=== PATIENT | female | born 1975 | race Caucasian/White ===

== ENCOUNTER → 2016-11-28 | Outpatient (CLI) | payer OTHER ==
--- NOTE | 2016-11-28 09:05 | US ---
EXAMINATION TYPE: US thyroid st tissue head/neck DATE OF EXAM: 11/28/2016 COMPARISON: NONE CLINICAL HISTORY: E01.1 THYROMEGALY. no abn labs, but enlarged thyroid gland on dr's exam GLAND SIZE: Right Lobe: 5.4 x 1.5 x 2.4 cm Left Lobe: 5.4 x 3.0 x 2.8 cm Isthmus Thickness: 0.4 cm NODULES RIGHT: # of nodules measured on right: 3 1. 1.9 X 1.2 x 1.2 cm complex cystic nodule at the posterior pole with well-defined margins. This nodule is wider than tall and shows no intranodular vascularity. Prior size: no previous 2. 0.7 X 0.5 x 0.6 cm hypoechoic solid nodule at the upper pole with well-defined margins. This nod ule is wider than tall and shows no intranodular vascularity. Prior size: no previous 3. 0.6 X 0.5 x 0.4 cm hypoechoic solid nodule at the anterior upper pole with well-defined margins. This nodule is wider than tall and shows peripheral vascularity. Prior size: no previous LEFT: # of nodules measured on left: 1 1. 3.9 X 2.5 x 2.6 cm hypoechoic heterogeneous solid nodule at the lower pole with well-defined mar gins. This nodule is wider than tall and shows intranodular vascularity. Prior size: no previous ISTHMUS: # of nodules measured in the isthmus: 0 Bilateral neck scanned, no evidence of lymphadenopathy. Thyroid gland is heterogeneous in appearance and enlarged in size, there is a dominant heterogeneous hypoechoic well-defined 3.9 cm solid nodule lower pole level left thyroid. There are scattered smalle r nodules in right thyroid lobe including a dominant 1.9 cm well-defined cystic nodule with colloid. IMPRESSION: Heterogeneous enlarged thyroid gland with dominant 3.9 cm solid left thyroid nodule, ultrasound guide d fine-needle aspiration advised for this nodule to rule out malignancy.
== END | disposition home or self-care (01) ==
LOC: RADUSWWP 07:41
PROVIDERS: ATTEND Family Medicine
DX: E04.1 Nontoxic single thyroid nodule (principal)
CPT/HCPCS: 76536

== ENCOUNTER 2016-12-12 12:20 | Day surgery (SDC) | payer OTHER ==
[2016-12-12 12:38] VITALS: RESP 14; TEMP 98.1
[2016-12-12] MEDS ORDERED: ALPRAZolam 0.5 MG TAB PO STA (12:43)
--- NOTE | 2016-12-12 13:34 | US ---
ULTRASOUND GUIDED FNA THYROID BIOPSY: CLINICAL HISTORY: Request for bilateral thyroid nodule FNA FINDINGS: The procedure was explained to the patient. The risks, complications, benefits and alternatives were discussed and any questions were answered. Informed consent was obtained. Patient was placed supin e on the ultrasound table and prepped and draped in the usual sterile fashion. Utilizing a 25 gauge needle, five passes were made into the dominant 3.9 cm left thyroid nodule. The requested right 1.9 c m nodule was nearly all fluid and cystic. This was aspirated, pathology pending.. Patient was stable throughout the procedure. Pathology is pending. All elements of maximal barrier technique were utilized. IMPRESSION: 1. Successful ultrasound guided FNA thyroid biopsy.
[2016-12-12 13:35] VITALS: BP 115/74; PULSE 74
== END 2016-12-12 13:40 | disposition home or self-care (01) ==
LOC: RADPROMAIN 12:20
PROVIDERS: ATTEND Otolaryngology
DX: E04.1 Nontoxic single thyroid nodule (principal)
CPT/HCPCS: 10022; 76942; 88173; 88305

== ENCOUNTER → 2017-01-04 | Outpatient (CLI) | payer OTHER | END | disposition home or self-care (01) | LOC: LABWHC1 13:56 | PROVIDERS: ATTEND Otolaryngology | DX: E06.9 Thyroiditis, unspecified (principal) | CPT/HCPCS: 36415; 86376 ==

== ENCOUNTER 2020-07-07 20:56 | Emergency (ER) | payer OTHER ==
[2020-07-07 21:09] VITALS: BP 123/64; PULSE 72; RESP 18; TEMP 98.1
[2020-07-07] MEDS ORDERED: LIDOCAINE/EPINEPHR/TETRACAINE 5 ML BOTTLE TOPICAL ONE (21:13)
[2020-07-07] MEDS ORDERED: DIPH,PERTUS(ACELL)TETVAC-LF 0.5 ML VIAL IM ONE (21:14)
[2020-07-07] MEDS ORDERED: BACITRACIN OINT 1 EACH PACKET TOPICAL ONE (21:53)
--- NOTE | 2020-07-07 21:54 | ED ---
Wound/Laceration HPI - General Chief Complaint: Wound/Laceration Stated Complaint: Chin lac Time Seen by Provider: 07/07/20 21:10 Source: patient, family Mode of arrival: ambulatory Limitations: no limitations - History of Present Illness Initial Comments: 45 or a feeling of presenting today for chief complaint of chin laceration. Patient states she was pushing on a drawer when it broke and she struck her chin on it. Patient states that this caused laceration. Patient states she is unsure of her last tetanus. She denies loss of consciousness she denies any dental injury headache, nausea, vomiting or visual changes. pt appears well nontoxic on arrival in no acute distress. - Related Data Home Medications Medication Instructions Recorded Confirmed Fexofenadine/Pseudoephedrine 1 tab PO DAILY 12/07/16 12/12/16 [Keily-D 24 Hour Tablet] Fluticasone Propionate [Flonase 1 spray EA NOSTRIL DAILY 12/07/16 12/12/16 Allergy Relief] Ibuprofen 800 mg PO TID 12/07/16 12/07/16 Allergies Allergy/AdvReac Type Severity Reaction Status Date / Time No Known Allergies Allergy Verified 07/07/20 21:08 Review of Systems ROS Statement: Those systems with pertinent positive or pertinent negative responses have been documented in the HPI. ROS Other: All systems not noted in ROS Statement are negative. Past Medical History Past Medical History: No Reported History, Cancer Additional Past Medical History / Comment(s): cervical cancerous cells History of Any Multi-Drug Resistant Organisms: None Reported Past Surgical History: Cholecystectomy, Hysterectomy, Joint Replacement Additional Past Surgical History / Comment(s): knee surgery 2009 - arthroscopy, sanket 1996, hysterectomy 2016 Past Anesthesia/Blood Transfusion Reactions: No Reported Reaction Past Psychological History: No Psychological Hx Reported Smoking Status: Current every day smoker Past Alcohol Use History: Occasional Past Drug Use History: None Reported - Past Family History Father Family Medical History: Diabetes Mellitus, Thyroid Disorder Sister(s) Family Medical History: Thyroid Disorder General Exam - General Exam Comments Initial Comments: General: The patient is awake and alert, in no distress, and does not appear acutely ill. Eye: Pupils are equal, round and reactive to light, extra-ocular movements are intact. No nystagmus. There is normal conjunctiva bilaterally. No signs of icterus. Ears, nose, mouth and throat: There are moist mucous membranes and no oral lesions. Neck: The neck is supple, there is no tenderness or JVD. Musculoskeletal: Normal ROM, no tenderness. Strength 5/5. Sensation intact. Radial pulses equal bilaterally 2+. Neurological: A&O x 3. CN II-XII intact, There are no obvious motor or sensory deficits. Coordination appears grossly intact. Speech is normal. Skin: Skin is warm and dry and no rashes. 1.5 cm linear laceration under chin, anterior proximal neck Psychiatric: Cooperative, appropriate mood & affect, normal judgment. Limitations: no limitations Course Vital Signs 07/07/20 21:07 Temperature 98.1 F Pulse Rate 72 Respiratory 18 Rate Blood Pressure 123/64 O2 Sat by Pulse 96 Oximetry Procedures - Laceration Laceration #1 Consent Obtained: verbal consent Indication: laceration Site: neck Size (cm): 1 (1.5) Description: linear Depth: simple, single layer Pre-repair: wound explored, deep structures intact Type of Sutures: nylon Size of Sutures: 6-0 Number of Sutures: 5 Technique: simple, interrupted Patient Tolerated Procedure: well, no complications Additional Comments: cleansed with water and iodine. Medical Decision Making - Medical Decision Making Tdap updated. laceration repaired after cleansing. pt tolerated procedure well. discussed return parameters. pt discharged appearing well. Disposition Clinical Impression: Chin laceration Disposition: HOME SELF-CARE Condition: Good Instructions (If sedation given, give patient instructions): Care For Your Stitches (ED), Facial Laceration (ED) Additional Instructions: Please use medication as discussed. Please follow-up with family doctor in the next 2 days, return for suture removal in 5 days. Please return to emergency room if the symptoms increase or worsen or for any other concerns. Is patient prescribed a controlled substance at d/c from ED?: No Referrals: Emir Veras MD [Primary Care Provider] - 1-2 days Time of Disposition: 21:53
== END 2020-07-07 22:12 | disposition home or self-care (01) ==
LOC: EC 20:56
DX: S01.81XA Laceration without foreign body of other part of head, initial encounter (principal); F17.200 Nicotine dependence, unspecified, uncomplicated; Z23 Encounter for immunization; Z90.710 Acquired absence of both cervix and uterus; Z90.49 Acquired absence of other specified parts of digestive tract; Z85.41 Personal history of malignant neoplasm of cervix uteri; W22.8XXA Striking against or struck by other objects, initial encounter
CPT/HCPCS: 12001; 90471; 90715; 99282